=== PATIENT | female | born 1975 | race Hispanic/Latino ===

== ENCOUNTER → 2018-02-04 | Outpatient (CLI) | payer OTHER, MEDICARE ==
[~2018-02-04] MED LIST: FLUT1AER IH; LEVO500T2 PO
== END | disposition home or self-care (01) ==
LOC: SLP 20:41
PROVIDERS: ATTEND Family Medicine
DX: G47.33 Obstructive sleep apnea (adult) (pediatric) (principal); E66.01 Morbid (severe) obesity due to excess calories; J44.9 Chronic obstructive pulmonary disease, unspecified; J96.01 Acute respiratory failure with hypoxia
CPT/HCPCS: 95810

== ENCOUNTER → 2018-02-25 | Outpatient (CLI) | payer OTHER, MEDICARE | END | disposition home or self-care (01) | LOC: SLP 20:25 | PROVIDERS: ATTEND Family Medicine | DX: G47.33 Obstructive sleep apnea (adult) (pediatric) (principal); E66.01 Morbid (severe) obesity due to excess calories; J44.9 Chronic obstructive pulmonary disease, unspecified; J96.10 Chronic respiratory failure, unspecified whether with hypoxia or hypercapnia | CPT/HCPCS: 95811 ==

== ENCOUNTER 2018-06-23 09:07 | Observation (INO) | payer OTHER, MEDICARE ==
[~2018-06-23] VITALS: Ht 157.5 cm; Wt 222.4 kg
[2018-06-23 10:00] LABS: BASOPHILS % (AUTO) 0.9 % (0.0-5.0); EOSINOPHILS % (AUTO) 1.7 % (0.0-8.0); LYMPHOCYTES % (AUTO) 22.4 % (21.0-51.0); MEAN CORPUSCULAR HEMOGLOBIN 26.2 pg (27.0-33.0); MEAN CORPUSCULAR HGB CONC 31.3 g/dL (32.0-36.0); MEAN CORPUSCULAR VOLUME 83.6 fL (79-99); MONOCYTES % (AUTO) 7.4 % (3.0-13.0); NEUTROPHILS % (AUTO) 67.6 % (40.0-77.0); NUCLEATED RED BLOOD CELLS 0.1 % (0.0-0.19); PLATELET COUNT (AUTO) 218 K/uL (130-400); RED CELL DISTRIBUTION WIDTH 15.8 % (11.0-15.5); WHITE BLOOD COUNT (AUTO) 7.8 K/uL (4.8-10.8)
[2018-06-23] MEDS ORDERED: HYDROCODONE/ACETAMINOPHEN 10/325 MG TAB ONE (10:03)
[2018-06-23] MEDS ORDERED: FUROSEMIDE 10 MG/ML 4ML VIAL ONE ×2 (10:03→20:49)
[2018-06-23] MEDS ORDERED: FUROSEMIDE 10 MG/ML 2ML VIAL ONE (10:03)
[2018-06-23 10:16] LABS: CREATININE 1.1 mg/dL (0.5-1.5); POTASSIUM 4.7 mmol/L (3.5-5.1)
[2018-06-23 10:30] LABS: B-TYPE NATRIURETIC PEPTIDE 23 pg/mL (0-100)
[2018-06-23] MEDS ORDERED: POTASSIUM CHLORIDE 10% ELIXIR 20 MEQ/15 ML UDCUP PO PRN (12:45)
[2018-06-23] MEDS ORDERED: GUAIFENESIN SUGAR-FREE 100 MG/5 ML UDCUP PO PRN (12:45)
[2018-06-23] MEDS ORDERED: GUAIFENESIN-DM 200/20 MG 10 ML PO PRN (12:45)
[2018-06-23] MEDS ORDERED: DIPHENHYDRAMINE HCL 25 MG CAPSULE PO PRN (12:45)
[2018-06-23] MEDS ORDERED: GLUCAGON 1MG KIT 1 MG ML IM PRN (12:45)
[2018-06-23] MEDS ORDERED: DiphenhydrAMINE HCL 50 MG/ML VIAL IVP PRN (12:45)
[2018-06-23] MEDS ORDERED: ONDANSETRON HCL 4 MG/2 ML VIAL IVP PRN (12:45)
[2018-06-23] MEDS ORDERED: MAG HYDROX/AL HYDROX/SIMETH ES 30 ML SUSP UDCUP PO PRN (12:45)
[2018-06-23] MEDS ORDERED: LACTULOSE 20 GM/30 ML UDCUP PO PRN (12:45)
[2018-06-23] MEDS ORDERED: DEXTROSE 50%-WATER 50 ML DISP.SYRIN IV PRN (12:45)
[2018-06-23] MEDS ORDERED: ACETAMINOPHEN 325 MG TAB PO PRN ×2 (12:45)
[2018-06-23] MEDS ORDERED: NITROGLYCERIN 0.4 MG SL TAB SL PRN (12:45)
[2018-06-23] MEDS ORDERED: CLONIDINE HCL 0.1 MG TABLET PO PRN (12:45)
[2018-06-23] MEDS ORDERED: ZOLPIDEM TARTRATE 5 MG TAB PO PRN (12:45)
[2018-06-23] MEDS ORDERED: POTASSIUM CHLORIDE 20MEQ/100ML 100 ML IV PRN (12:45)
[2018-06-23] MEDS ORDERED: POTASSIUM CHLORIDE 20 MEQ ERTAB PO PRN (12:45)
[2018-06-23] MEDS ORDERED: SODIUM CHLORIDE 0.9% 10 ML VIAL IVP SCH (12:45)
[2018-06-23] MEDS ORDERED: LIDOCAINE HCL-MPF 1% 2ML VIAL IJ PRN (12:45)
[2018-06-23] MEDS ORDERED: FUROSEMIDE 10 MG/ML 4ML VIAL IVP SCH (13:00)
[2018-06-23] MEDS ORDERED: LOSA100T58 PO (14:55)
[2018-06-23] MEDS ORDERED: FURO40TA5 PO (14:55)
[2018-06-23] MEDS: INSULIN R PO SSI SQ SCH ×2 (16:30→21:00)
[2018-06-23] MEDS ORDERED: ACETAMINOPHEN 325 MG TAB ONE (17:09)
[2018-06-23 21:30] VITALS: BP 140/105
[2018-06-24] VITALS (7 sets, daily range): BP systolic 111–153; BP diastolic 59–95
[2018-06-24] MEDS: INSULIN R PO SSI SQ SCH ×4 (06:54→20:21)
[2018-06-24] MEDS: FLUTICASONE/VILANTEROL 1 EACH AER.POW.BA IH SCH (09:00)
[2018-06-24] MEDS: LOSARTAN 100 MG TABLET PO SCH (09:36)
[2018-06-24] MEDS: FUROSEMIDE 10 MG/ML 4ML VIAL IVP SCH ×2 (09:36→20:16)
--- NOTE | 2018-06-24 18:10 | NUR ---
IA MET W PT FOR IA; PT SEVERELY MORBIDLY OBESE, NEEDS SUGAR TRUCKER W ADLS, LIVE W KIDS, 17, 5, AND 2; STATES HAS ALWAYS BEEN ACTIVE BUT IN THE LAST FEE WEEKS CANNOT WALK, SHORT OT BEATH, LEGS SWOLLEN, SCARED, HAS PORVIDER SERVICES, UNABLE TO LOOK AFTER HER CHILDREN. DOES NOT KNOW WHAT THE FUTURE HOLDS. CM TO FOLLOW Addendum: 06/24/18 at 2043 by IZA MARMOLEJO RN CM Amended: Links added.
[2018-06-24] MEDS ORDERED: ESCI10TA54 PO (19:15)
[2018-06-24] MEDS ORDERED: HYDROCODONE/ACETAMINOPHEN 5/325 MG TAB PO PRN (20:00)
[2018-06-24 20:03] LABS: CREATININE 1.1 mg/dL (0.5-1.5)
[2018-06-25 04:04] VITALS: BP 145/79
[2018-06-25] MEDS: INSULIN R PO SSI SQ SCH ×2 (06:00→11:30)
[2018-06-25 07:30] VITALS: BP 155/91
[2018-06-25] MEDS: FUROSEMIDE 10 MG/ML 4ML VIAL IVP SCH (08:19)
[2018-06-25] MEDS: FLUTICASONE/VILANTEROL 1 EACH AER.POW.BA IH SCH (08:19)
[2018-06-25] MEDS: LOSARTAN 100 MG TABLET PO SCH (08:19)
[2018-06-25] MEDS ORDERED: CITALOPRAM 20 MG TABLET PO SCH (09:00)
[2018-06-25] MEDS ORDERED: NON-FORMULARY MEDICATION 1 EACH (Escitalopram Oxalate 10 MG) PO SCH (09:00)
[2018-06-25 11:00] VITALS: BP 130/67
[2018-06-25 14:27] LABS: CREATININE 1.4 mg/dL (0.5-1.5); POTASSIUM 3.9 mmol/L (3.5-5.1)
[2018-06-25 14:32] LABS: ALBUMIN 2.3 g/dL (3.5-5.0); BILIRUBIN,TOTAL 0.2 mg/dL (0.2-1.0); TOTAL PROTEIN, SERUM 6.6 g/dL (6.0-8.3)
--- NOTE | 2018-06-25 17:37 | NUR ---
Patient discharged in stable condition. patient instructed if SOB returns or gets worse, come back to the ER. New prescription called into [facility] Baclofen 10mg BID PRN. Patient instructed how to take medication and to report any allergic reaction right away. Patient pending to citrus picker her oxygen tank. Patient verbalized teaching to all discharge instruction. No other questions or concerns voiced.
== END 2018-06-25 19:15 | disposition home or self-care (01) ==
LOC: EDH 09:07 → OBSVTOIN 12:20 → EDHIP 12:20 → INTOOBSV 12:20 → 4BH 21:30
PROVIDERS: ADMIT Family Medicine; ATTEND Family Medicine
DX: R06.03 Acute respiratory distress (principal); E66.01 Morbid (severe) obesity due to excess calories; E78.5 Hyperlipidemia, unspecified; G47.33 Obstructive sleep apnea (adult) (pediatric); I10 Essential (primary) hypertension; R29.6 Repeated falls
CPT/HCPCS: 36415 ×3; 71046; 73560; 80048 ×2; 80053; 82948 ×6; 83880; 84484; 85025; 93005; 94660 ×2; 96374; 96376 ×2; 99284; G0378 ×55; J1940 ×6

== ENCOUNTER 2020-01-12 09:11 | Inpatient (IN) | payer OTHER, MEDICARE ==
[~2020-01-12] VITALS: Ht 157.5 cm; Wt 196.0 kg
[~2020-01-12 09:11] MED LIST changes: +ESCI10TA54 PO; +FURO40TA5 PO; -LEVO500T2 PO; +LOSA100T58 PO
[2020-01-12 09:49] LABS: CREATININE 1.7 mg/dL (0.5-1.5); POTASSIUM 4.8 mmol/L (3.5-5.1)
[2020-01-12 09:57] LABS: INR 1.03 (0.85-1.15); PARTIAL THROMBOPLASTIN TIME 24.7 SEC (26.3-35.5); PROTHROMBIN TIME 11.1 SEC (9.6-11.6)
[2020-01-12 09:59] LABS: ALBUMIN 2.5 g/dL (3.5-5.0); BILIRUBIN,TOTAL 0.3 mg/dL (0.2-1.0); TOTAL PROTEIN, SERUM 7.1 g/dL (6.0-8.3)
[2020-01-12 10:13] LABS: APPEARANCE,URINE CLOUDY (CLEAR); BILIRUBIN,URINE SMALL (NEGATIVE); COLOR,URINE YELLOW (YELLOW); GLUCOSE, URINE (UA) NEGATIVE (NEGATIVE); KETONES,URINE NEGATIVE (NEGATIVE); LEUKOCYTE ESTERASE ,URINE NEGATIVE (NEGATIVE); NITRATE,URINE NEGATIVE (NEGATIVE); OCCULT BLOOD,URINE SMALL (NEGATIVE); PH,URINE 5.5 (5.0-8.0); PROTEIN,URINE >=300 mg/dL (NEGATIVE)
[2020-01-12 10:24] LABS: AMORPHOUS SEDIMENT,UR Moderate /LPF (None Seen); BACTERIA,URINE Few /HPF (None Seen); RBC,URINE 0-1 /HPF (0-1); SQUAMOUS EPITHELIAL CELL,UR Few /HPF (0-2)
[2020-01-12 10:26] LABS: ABG BASE EXCESS 6.7 mmol/L (-2.0-3.0); ABG OXYGEN SATURATION 93.1 % (95.0-99.0); ABG PCO2 90 mmHg (32-45)
[2020-01-12 10:40] LABS: BASOPHILS % (AUTO) 0.5 % (0.0-5.0); EOSINOPHILS % (AUTO) 1.2 % (0.0-8.0); HEMATOCRIT 42.7 % (36-48); LYMPHOCYTES % (AUTO) 18.6 % (21.0-51.0); MEAN CORPUSCULAR HEMOGLOBIN 22.9 pg (27.0-33.0); MEAN CORPUSCULAR HGB CONC 26.9 g/dL (32.0-36.0); MEAN CORPUSCULAR VOLUME 85.1 fL (79-99); MONOCYTES % (AUTO) 6.9 % (3.0-13.0); NEUTROPHILS % (AUTO) 72.3 % (40.0-77.0); PLATELET COUNT (AUTO) 202 K/uL (130-400); RED BLOOD CELL COUNT(AUTO) 5.02 MIL/uL (4.00-5.50); RED CELL DISTRIBUTION WIDTH 19.7 % (11.0-15.5); WHITE BLOOD COUNT (AUTO) 8.5 K/uL (4.8-10.8)
[2020-01-12] MEDS ORDERED: PANTOPRAZOLE 40 MG/VIAL ONE (11:57)
[2020-01-12] MEDS ORDERED: CEFTRIAXONE SODIUM 1 GM ONE (11:58)
[2020-01-12] MEDS ORDERED: SODIUM CHLORIDE 0.9% 50 ML IV ONE (11:58)
[2020-01-12 18:48] VITALS: BP 156/73
[2020-01-12] MEDS ORDERED: QUET50TA55 PO (19:42)
[2020-01-12] MEDS ORDERED: METF-444 PO (19:42)
[2020-01-12] MEDS ORDERED: HYDR25TA PO (19:42)
[2020-01-12] MEDS ORDERED: BACL10TA PO (19:42)
[2020-01-12] MEDS ORDERED: DULO60CA64 PO (19:42)
[2020-01-12 20:00] VITALS: BP 159/76
[2020-01-12] MEDS ORDERED: DEXTROSE 50%-WATER 50 ML DISP.SYRIN IV PRN (20:15)
[2020-01-12] MEDS ORDERED: GLUCAGON 1MG KIT 1 MG ML IM PRN (20:15)
[2020-01-12] MEDS: ENOXAPARIN SODIUM 120 MG/0.8ML SQ SCH (21:00)
[2020-01-12] MEDS: INSULIN HUMULIN R 100 UNIT/ML 3ML SQ SCH (21:00)
[2020-01-13 00:27] VITALS: BP 132/91
[2020-01-13 04:32] VITALS: BP 155/91
[2020-01-13] MEDS ORDERED: ACETAMINOPHEN 325 MG TAB PO PRN (05:00)
[2020-01-13] MEDS: INSULIN HUMULIN R 100 UNIT/ML 3ML SQ SCH ×4 (06:02→21:00)
[2020-01-13 07:21] LABS: ALBUMIN 2.4 g/dL (3.5-5.0); BILIRUBIN,TOTAL 0.4 mg/dL (0.2-1.0); CREATININE 1.7 mg/dL (0.5-1.5); MAGNESIUM 1.7 mg/dL (1.80-2.40); PHOSPHORUS 3.4 mg/dL (2.5-4.9); POTASSIUM 4.4 mmol/L (3.5-5.1); TOTAL PROTEIN, SERUM 6.7 g/dL (6.0-8.3)
[2020-01-13 08:25] LABS: ABG HCO3 34.7 mmol/L (21.0-28.0); ABG OXYGEN SATURATION 94.1 % (95.0-99.0); ABG PCO2 76 mmHg (32-45)
[2020-01-13 08:33] VITALS: BP 154/90
[2020-01-13] MEDS: BACLOFEN 10 MG TABLET PO SCH ×3 (10:14→22:13)
[2020-01-13] MEDS: CEFTRIAXONE SODIUM 1 GM IVP SCH (10:14)
[2020-01-13] MEDS: ENOXAPARIN SODIUM 120 MG/0.8ML SQ SCH ×2 (10:15→22:14)
[2020-01-13 11:23] VITALS: BP 144/90
--- NOTE | 2020-01-13 16:00 | NUR ---
NUTRITION DIGITAL MARKETING MANAGER-Assisted Diabetes Nutrition Education. BROOKS faxed nutrition education 3A, RN notified. BROOKS to follow up. Addendum: 01/13/20 at [address] Amended: Links added.
--- NOTE | 2020-01-13 16:07 | NUR ---
RD NOTIFICATION Pt admitted with ARF, s/p Fall. BiPAP. Obesity Class III (BMI 99.9). Heart Healthy,75gm CC diet order in place. LBM 01/11/20. Monitored labs: BUN 24, Cr 1.7, GFR 35, BG 117, Alb 2.4. Recommend continue Heart Healthy, 75gm CCD Recommend Glucerna TID Nutrition Education faxed to 3A [phone]), RN notified RD to continue to monitor. Please notify as additional nutrition concerns arise. Thank you. Addendum: 01/13/20 at [address] Amended: Links added.
[2020-01-13 16:58] VITALS: BP 140/77
--- NOTE | 2020-01-13 19:51 | NUR ---
MET WITH PATIENT FOR DC PLANNING PATIENT LIVES WITH HER TWO YOUNG CHILDREN AND HER ADULT SUNIL. SHE HAS A PROVIDER 47 HRS A WEEK AND HER SISTER COMES IN TO LOOK AFTER HER CHILDREN WHEN THE PROVIDER LEAVES FOR THE EVENING. SHE HAS OXYGEN, CPAP MACHINE AND A WHEELCHAIR; SHE DOES NOT HAVE A HOSPITAL BED. HER MOBILITY IS SEVERELY RESTRICTED. BMI IS 99 WE WILL EXPECT EMP TRANSPORT HOME. POSSIBLE NEED FOR HOSPITAL BED. CM TO FOLLOW Addendum: 01/13/20 at 1954 by IZA MARMOLEJO RN CM Amended: Links added.
[2020-01-13 20:00] VITALS: BP 162/90
[2020-01-14] VITALS: BP 102/56
[2020-01-14 04:00] VITALS: BP 148/84
[2020-01-14] MEDS: INSULIN HUMULIN R 100 UNIT/ML 3ML SQ SCH ×4 (06:09→21:00)
[2020-01-14 08:24] VITALS: BP 130/81
[2020-01-14] MEDS: BACLOFEN 10 MG TABLET PO SCH ×3 (09:30→20:58)
[2020-01-14] MEDS: FUROSEMIDE 10 MG/ML 4ML VIAL IV SCH (09:30)
[2020-01-14] MEDS: ENOXAPARIN SODIUM 120 MG/0.8ML SQ SCH ×2 (09:31→20:57)
[2020-01-14] MEDS: CEFTRIAXONE SODIUM 1 GM IVP SCH (09:31)
[2020-01-14 11:34] VITALS: BP 129/74
[2020-01-14 16:18] VITALS: BP 136/80
[2020-01-14 16:56] LABS: ABG BASE EXCESS 7.5 mmol/L (-2.0-3.0); ABG HCO3 38.7 mmol/L (21.0-28.0); ABG OXYGEN SATURATION 86.4 % (95.0-99.0); ABG PCO2 91 mmHg (32-45)
--- NOTE | 2020-01-14 17:06 | NUR ---
i spoke to milana harper and informed her of current pco2 level of 90, and that respiratory is going to go up to 50% on FIO2; she stated ok she would look at results.
--- NOTE | 2020-01-14 18:55 | NUR ---
CT DEPARTMENT CALLED IN REGARDS TO ORDER FOR CT ANGIO CHEST THAT PT'S CREATINE IS 1.7 WHICH IS ABOVE THERE NORMAL RANGE, I ASKED ABOUT PT'S WEIGHT OF 550 LBS AND SHE STATED THAT SHE IS ALSO THEN TO HEAVY FOR THE MACHINE; I HAVE PAGED CORRUGATOR OPERATOR DEISY JACOBSNO VIA ANSWERING SERVICE AND PENDING CALL BACK
[2020-01-14 20:00] VITALS: BP 143/88
[2020-01-15] VITALS: BP 137/77
[2020-01-15 04:00] VITALS: BP 127/76
[2020-01-15 04:17] LABS: BASOPHILS % (AUTO) 0.4 % (0.0-5.0); EOSINOPHILS % (AUTO) 2.2 % (0.0-8.0); HEMATOCRIT 37.9 % (36-48); LYMPHOCYTES % (AUTO) 14.3 % (21.0-51.0); MEAN CORPUSCULAR HEMOGLOBIN 22.8 pg (27.0-33.0); MEAN CORPUSCULAR HGB CONC 26.6 g/dL (32.0-36.0); MEAN CORPUSCULAR VOLUME 85.6 fL (79-99); MONOCYTES % (AUTO) 7.6 % (3.0-13.0); NEUTROPHILS % (AUTO) 75.2 % (40.0-77.0); PLATELET COUNT (AUTO) 190 K/uL (130-400); RED BLOOD CELL COUNT(AUTO) 4.43 MIL/uL (4.00-5.50); WHITE BLOOD COUNT (AUTO) 7.3 K/uL (4.8-10.8)
[2020-01-15 04:24] LABS: ALBUMIN 2.4 g/dL (3.5-5.0); BILIRUBIN,TOTAL 0.4 mg/dL (0.2-1.0); CREATININE 1.7 mg/dL (0.5-1.5); MAGNESIUM 1.7 mg/dL (1.80-2.40); PHOSPHORUS 3.4 mg/dL (2.5-4.9); POTASSIUM 4.2 mmol/L (3.5-5.1); TOTAL PROTEIN, SERUM 6.5 g/dL (6.0-8.3)
[2020-01-15 04:43] LABS: B-TYPE NATRIURETIC PEPTIDE 392 pg/mL (0-100)
[2020-01-15] MEDS: INSULIN HUMULIN R 100 UNIT/ML 3ML SQ SCH ×4 (06:33→21:00)
[2020-01-15 08:04] LABS: ABG BASE EXCESS 7.3 mmol/L (-2.0-3.0); ABG HCO3 38.5 mmol/L (21.0-28.0); ABG OXYGEN SATURATION 96.6 % (95.0-99.0); ABG PCO2 90 mmHg (32-45)
[2020-01-15 08:11] VITALS: BP 140/82
[2020-01-15] MEDS: HYDROCHLOROTHIAZIDE 25 MG TABLET PO SCH (08:33)
[2020-01-15] MEDS: FLUTICASONE/VILANTEROL 1 EACH AER.POW.BA IH SCH (08:33)
[2020-01-15] MEDS: DULOXETINE HCL 30 MG CAP PO SCH (08:33)
[2020-01-15] MEDS: BACLOFEN 10 MG TABLET PO SCH ×3 (08:33→21:00)
[2020-01-15] MEDS: FUROSEMIDE 10 MG/ML 4ML VIAL IV SCH (08:34)
[2020-01-15] MEDS: CEFTRIAXONE SODIUM 1 GM IVP SCH (08:34)
--- NOTE | 2020-01-15 09:39 | NUR ---
I SPOKE TO DE FELICIANO AND INFORMED HER PT EXCEDES WEIGHT CAPACITY FOR VQ SCAN; SHE STATED TO CANCEL THE TEST THEN. WEIGHT CAPACITY IS 450 LBS AND PT WEIGHS 530 LBS
[2020-01-15] MEDS: ENOXAPARIN SODIUM 120 MG/0.8ML SQ SCH ×2 (10:10→21:02)
[2020-01-15 11:31] VITALS: BP 128/76
--- NOTE | 2020-01-15 12:51 | NUR ---
COVID RAPID AND PCR COLLECTED AND SENT TO LAB
[2020-01-15 15:58] VITALS: BP 166/82
[2020-01-15] MEDS: MAGNESIUM 2GM PREMIX 50ML 50 ML IV PRN (16:36)
[2020-01-15 20:00] VITALS: BP 115/70
[2020-01-16] VITALS (7 sets, daily range): BP systolic 124–146; BP diastolic 64–94
[2020-01-16 04:07] LABS: BASOPHILS % (AUTO) 0.5 % (0.0-5.0); EOSINOPHILS % (AUTO) 3.3 % (0.0-8.0); HEMATOCRIT 35.8 % (36-48); LYMPHOCYTES % (AUTO) 15.8 % (21.0-51.0); MEAN CORPUSCULAR HEMOGLOBIN 23.1 pg (27.0-33.0); MEAN CORPUSCULAR HGB CONC 27.7 g/dL (32.0-36.0); MEAN CORPUSCULAR VOLUME 83.4 fL (79-99); MONOCYTES % (AUTO) 8.4 % (3.0-13.0); NEUTROPHILS % (AUTO) 71.7 % (40.0-77.0); PLATELET COUNT (AUTO) 143 K/uL (130-400); RED BLOOD CELL COUNT(AUTO) 4.29 MIL/uL (4.00-5.50); WHITE BLOOD COUNT (AUTO) 6.4 K/uL (4.8-10.8)
[2020-01-16 04:28] LABS: ALBUMIN 2.4 g/dL (3.5-5.0); BILIRUBIN,TOTAL 0.4 mg/dL (0.2-1.0); CREATININE 1.6 mg/dL (0.5-1.5); MAGNESIUM 1.7 mg/dL (1.80-2.40); TOTAL PROTEIN, SERUM 6.8 g/dL (6.0-8.3)
[2020-01-16 05:03] LABS: B-TYPE NATRIURETIC PEPTIDE 343 pg/mL (0-100)
[2020-01-16] MEDS: INSULIN HUMULIN R 100 UNIT/ML 3ML SQ SCH ×4 (06:23→21:00)
[2020-01-16] MEDS: HYDROCHLOROTHIAZIDE 25 MG TABLET PO SCH (09:02)
[2020-01-16] MEDS: DULOXETINE HCL 30 MG CAP PO SCH (09:02)
[2020-01-16] MEDS: CEFTRIAXONE SODIUM 1 GM IVP SCH (09:02)
[2020-01-16] MEDS: ENOXAPARIN SODIUM 120 MG/0.8ML SQ SCH ×2 (09:02→20:02)
[2020-01-16] MEDS: BACLOFEN 10 MG TABLET PO SCH ×3 (09:02→20:02)
[2020-01-16] MEDS: FUROSEMIDE 10 MG/ML 4ML VIAL IV SCH (09:02)
[2020-01-16] MEDS: FLUTICASONE/VILANTEROL 1 EACH AER.POW.BA IH SCH (09:04)
--- NOTE | 2020-01-16 17:17 | NUR ---
CM Note: HCD pending to replace BIpap CM spoke to pt, verbalized her bipap is broken and will need to be replaced. Telephone consent obtained MONY for [facility]. Faxed order and clinicals, confirmation received. Pt pending approval for replacement of broken bipap. Primary nurse aware. CM to cont to follow up.
[2020-01-17 03:50] LABS: CARBON DIOXIDE 40 mmol/L (21-32); CHLORIDE 102 mmol/L (101-111); CREATININE 1.5 mg/dL (0.5-1.5); GLOMERULAR FILTR. RATE CALC 40 mL/min (>60); GLUCOSE,RANDOM 88 mg/dL (70-105); POTASSIUM 4.1 mmol/L (3.5-5.1); SODIUM SERUM 145 mmol/L (136-145); UREA NITROGEN, BLOOD 17 mg/dL (7-18)
[2020-01-17 04:00] VITALS: BP 148/88
[2020-01-17] MEDS: INSULIN HUMULIN R 100 UNIT/ML 3ML SQ SCH ×4 (06:50→20:33)
[2020-01-17 07:48] LABS: ABG BASE EXCESS 9.4 mmol/L (-2.0-3.0); ABG HCO3 40.6 mmol/L (21.0-28.0); ABG OXYGEN SATURATION 86.5 % (95.0-99.0); ABG PCO2 92 mmHg (32-45)
[2020-01-17 08:05] VITALS: BP 156/93
[2020-01-17] MEDS: CEFTRIAXONE SODIUM 1 GM IVP SCH (08:25)
[2020-01-17] MEDS: FUROSEMIDE 10 MG/ML 4ML VIAL IV SCH (08:28)
[2020-01-17] MEDS: BACLOFEN 10 MG TABLET PO SCH ×3 (08:51→20:31)
[2020-01-17] MEDS: HYDROCHLOROTHIAZIDE 25 MG TABLET PO SCH (08:51)
[2020-01-17] MEDS: DULOXETINE HCL 30 MG CAP PO SCH (08:51)
[2020-01-17] MEDS: ENOXAPARIN SODIUM 120 MG/0.8ML SQ SCH ×2 (08:53→20:32)
[2020-01-17] MEDS: FLUTICASONE/VILANTEROL 1 EACH AER.POW.BA IH SCH (08:59)
[2020-01-17 11:25] VITALS: BP_SYST 115; BP_SYST 175; BP_DIAS 63; BP_DIAS 94
[2020-01-17] MEDS: MAGNESIUM 2GM PREMIX 50ML 50 ML IV PRN (12:03)
--- NOTE | 2020-01-17 15:46 | NUR ---
CM Note: HCD will fix pt bipap CM spoke to Elke w/[facility], verbalized DME will coordinate w/pt and family so that bipap can be fixed prior to pt discharging. If unable to fix, DME will replace bipap. Aware dcp possibly 24-48hrs. Primary nurse aware. CM to cont to follow up
[2020-01-17 16:21] VITALS: BP 156/96
--- NOTE | 2020-01-17 17:45 | NUR ---
PATIENT COMPLAINT PATIENT REPORTED HAVING ISSUES SWALLOWING WHILE EATING BREADED MEAT AT DINNER. I ASKED PATIENT WHEN IT STARTED AND SHE SAID SHE FIRST NOTICED ISSUES SWALLOWING AT THIS TIME WHILE EATING DINNER. PATIENT THEN STATES "BUT I ATE A COOKIE WITH NO PROBLEMS." I TOLD PATIENT THAT IF SHE WAS ABLE TO EAT A COOKIE WITH NO SWALLOWING ISSUES THEN POSSIBLY THE SWALLOWING ISSUE HAD TO DO WITH CONSISTENCY OF BREADED CHICKEN AND NOT THE ABILITY TO SWALLOW. PATIENT ALSO REPORTS EATING JELLO AND DRINKING GLUCERNA WITH NO ISSUES. I ALSO ASSESSED PATIENT DRINKING WATER AND TAKE WHOLE PILLS WITH NO SIGNS OF PROBLEMS SWALLOWING. WILL CONTINUE TO MONITOR.
[2020-01-17 20:00] VITALS: BP 133/88
[2020-01-17 23:49] VITALS: BP 133/84
[2020-01-18 03:25] LABS: ABG BASE EXCESS 14.1 mmol/L (-2.0-3.0); ABG HCO3 43.8 mmol/L (21.0-28.0); ABG OXYGEN SATURATION 92.9 % (95.0-99.0); ABG PCO2 79 mmHg (32-45)
[2020-01-18 04:00] VITALS: BP 136/84
[2020-01-18] MEDS: INSULIN HUMULIN R 100 UNIT/ML 3ML SQ SCH ×4 (05:58→21:00)
[2020-01-18 06:27] LABS: BASOPHILS % (AUTO) 0.5 % (0.0-5.0); EOSINOPHILS % (AUTO) 3.6 % (0.0-8.0); HEMATOCRIT 35.6 % (36-48); LYMPHOCYTES % (AUTO) 19.2 % (21.0-51.0); MEAN CORPUSCULAR HEMOGLOBIN 22.6 pg (27.0-33.0); MEAN CORPUSCULAR HGB CONC 27.2 g/dL (32.0-36.0); MONOCYTES % (AUTO) 9.9 % (3.0-13.0); NEUTROPHILS % (AUTO) 66.4 % (40.0-77.0); PLATELET COUNT (AUTO) 155 K/uL (130-400); RED BLOOD CELL COUNT(AUTO) 4.29 MIL/uL (4.00-5.50); RED CELL DISTRIBUTION WIDTH 19.2 % (11.0-15.5); WHITE BLOOD COUNT (AUTO) 5.6 K/uL (4.8-10.8)
[2020-01-18 06:43] LABS: ALBUMIN 2.3 g/dL (3.5-5.0); BILIRUBIN,TOTAL 0.5 mg/dL (0.2-1.0); CREATININE 1.5 mg/dL (0.5-1.5); MAGNESIUM 1.4 mg/dL (1.80-2.40); PHOSPHORUS 3.2 mg/dL (2.5-4.9); POTASSIUM 3.8 mmol/L (3.5-5.1); TOTAL PROTEIN, SERUM 6.4 g/dL (6.0-8.3)
[2020-01-18 08:11] VITALS: BP 118/51
[2020-01-18] MEDS: DULOXETINE HCL 30 MG CAP PO SCH (08:36)
[2020-01-18] MEDS: BACLOFEN 10 MG TABLET PO SCH ×3 (08:36→19:29)
[2020-01-18] MEDS: HYDROCHLOROTHIAZIDE 25 MG TABLET PO SCH (08:36)
[2020-01-18] MEDS: FUROSEMIDE 10 MG/ML 4ML VIAL IV SCH (08:36)
[2020-01-18] MEDS: FLUTICASONE/VILANTEROL 1 EACH AER.POW.BA IH SCH (08:36)
[2020-01-18] MEDS: CEFTRIAXONE SODIUM 1 GM IVP SCH (08:36)
[2020-01-18 11:16] VITALS: BP 117/70
[2020-01-18] MEDS: ENOXAPARIN SODIUM 120 MG/0.8ML SQ SCH ×2 (12:14→19:30)
[2020-01-18 15:41] VITALS: BP 130/93
[2020-01-18 20:00] VITALS: BP 128/78
[2020-01-18 23:49] VITALS: BP 132/82
[2020-01-19 03:59] VITALS: BP 138/84
[2020-01-19] MEDS: INSULIN HUMULIN R 100 UNIT/ML 3ML SQ SCH ×4 (05:46→21:00)
[2020-01-19 08:18] VITALS: BP 152/91
[2020-01-19] MEDS: FLUTICASONE/VILANTEROL 1 EACH AER.POW.BA IH SCH (10:22)
[2020-01-19] MEDS: ENOXAPARIN SODIUM 120 MG/0.8ML SQ SCH ×2 (10:24→21:39)
[2020-01-19] MEDS: FUROSEMIDE 10 MG/ML 4ML VIAL IV SCH (10:25)
[2020-01-19] MEDS: CEFTRIAXONE SODIUM 1 GM IVP SCH (10:25)
[2020-01-19] MEDS ORDERED: ONDANSETRON HCL 4 MG/2 ML VIAL ONE (10:29)
[2020-01-19] MEDS: DULOXETINE HCL 30 MG CAP PO SCH (10:32)
[2020-01-19] MEDS: BACLOFEN 10 MG TABLET PO SCH ×3 (10:32→21:38)
[2020-01-19] MEDS: HYDROCHLOROTHIAZIDE 25 MG TABLET PO SCH (10:32)
[2020-01-19] MEDS ORDERED: ONDANSETRON HCL 4 MG/2 ML VIAL IVP PRN (10:45)
[2020-01-19] MEDS: MAGNESIUM 2GM PREMIX 50ML 50 ML IV PRN (11:13)
[2020-01-19 11:35] VITALS: BP 124/66
--- NOTE | 2020-01-19 13:00 | NUR ---
pt c/o not feeling good; she states she has mild chest pain to mid chest not radiating anywhere; pt has just completed receiving 2mg of magnesium per protocol, her bp is 119/65, hr108, and o2 sat was initially in the upper 70's low 80's till i adjusted her bipap mask and then it went into the upper 80's to low 90's; i have called melinda rebolledo for [facility] and informed her of pt's c/o chest pain and received orders to do a 12 lead ekg and cardiac enzymes Q6hr's x3; ekg read sinus taccycardia, pending results of cardiac enzymes; after 5 minutes pt stated her pain was decreasing; will cont to monitor including frequent vs.
[2020-01-19 13:45] LABS: CREATINE KINASE, TOTAL 31 U/L (21-232); MYOGLOBIN 51 ng/mL (10-92); TROPONIN I < 0.04 ng/mL (0.00-0.06)
[2020-01-19 16:38] VITALS: BP 99/56
[2020-01-19 20:00] VITALS: BP 116/65
[2020-01-20] VITALS: BP 139/78
[2020-01-20 04:00] VITALS: BP 135/70
[2020-01-20 04:08] LABS: ABG BASE EXCESS 10.6 mmol/L (-2.0-3.0); ABG HCO3 42.3 mmol/L (21.0-28.0); ABG OXYGEN SATURATION 89.5 % (95.0-99.0); ABG PCO2 97 mmHg (32-45)
[2020-01-20 04:11] LABS: BASOPHILS % (AUTO) 0.6 % (0.0-5.0); EOSINOPHILS % (AUTO) 3.7 % (0.0-8.0); HEMATOCRIT 39.9 % (36-48); LYMPHOCYTES % (AUTO) 28.2 % (21.0-51.0); MEAN CORPUSCULAR HEMOGLOBIN 22.6 pg (27.0-33.0); MEAN CORPUSCULAR HGB CONC 26.6 g/dL (32.0-36.0); MEAN CORPUSCULAR VOLUME 85.3 fL (79-99); NEUTROPHILS % (AUTO) 55.1 % (40.0-77.0); PLATELET COUNT (AUTO) 154 K/uL (130-400); RED BLOOD CELL COUNT(AUTO) 4.68 MIL/uL (4.00-5.50); RED CELL DISTRIBUTION WIDTH 19.7 % (11.0-15.5); WHITE BLOOD COUNT (AUTO) 5.4 K/uL (4.8-10.8)
--- NOTE | 2020-01-20 04:21 | NUR ---
CUSTOMER SUPPORT CONSULTANT FOR [facility] PAGED FOR ABG RESULTS
--- NOTE | 2020-01-20 04:35 | NUR ---
CITLALY STRONG STATED NO NEW ORDERS THAT PATIENT HAS A CHRONIC ISSUE AND WILL RELAY MESSAGE WITH MD IN AM RT AWARE
[2020-01-20 04:42] LABS: CREATININE 1.6 mg/dL (0.5-1.5); POTASSIUM 3.8 mmol/L (3.5-5.1)
[2020-01-20 04:49] LABS: ALBUMIN 2.5 g/dL (3.5-5.0); BILIRUBIN,TOTAL 0.3 mg/dL (0.2-1.0); MAGNESIUM 1.8 mg/dL (1.80-2.40); PHOSPHORUS 4.4 mg/dL (2.5-4.9); TOTAL PROTEIN, SERUM 7.2 g/dL (6.0-8.3); TROPONIN I 0.07 ng/mL (0.00-0.06)
[2020-01-20] MEDS: INSULIN HUMULIN R 100 UNIT/ML 3ML SQ SCH ×4 (07:05→21:00)
[2020-01-20 08:19] VITALS: BP 131/82
[2020-01-20] MEDS: FUROSEMIDE 10 MG/ML 4ML VIAL IV SCH (08:39)
[2020-01-20] MEDS: BACLOFEN 10 MG TABLET PO SCH ×3 (08:39→19:40)
[2020-01-20] MEDS: CEFTRIAXONE SODIUM 1 GM IVP SCH (08:40)
[2020-01-20] MEDS: HYDROCHLOROTHIAZIDE 25 MG TABLET PO SCH (08:40)
[2020-01-20] MEDS: FLUTICASONE/VILANTEROL 1 EACH AER.POW.BA IH SCH (08:40)
[2020-01-20] MEDS: DULOXETINE HCL 30 MG CAP PO SCH (08:40)
[2020-01-20] MEDS: ENOXAPARIN SODIUM 120 MG/0.8ML SQ SCH ×2 (08:44→19:40)
[2020-01-20 11:06] VITALS: BP 120/77
--- NOTE | 2020-01-20 12:08 | NUR ---
DC PLAN GOT ORDER FOR HOSPITAL BED LET NURSE KNOW NEED SCRIPT. PER NURSE SAID PULMONOLOGY DOES NOT THINK THAT PATIENT CAN GO HOME WITH OUT BIPAP. BIPAP BROKEN [facility] AWARE. SAID THEY WERE GETTING WITH FAMILY TO SEE ABOUT FIXING IT OR REPLACING IT. Addendum: 01/20/20 at 1210 by SHELLY ESCOBAR RN CM Amended: Links added.
[2020-01-20 13:31] LABS: CREATINE KINASE, TOTAL 20 U/L (21-232); MYOGLOBIN 44 ng/mL (10-92); TROPONIN I < 0.04 ng/mL (0.00-0.06)
[2020-01-20 16:40] VITALS: BP 123/67
[2020-01-20 20:00] VITALS: BP 124/95
[2020-01-21] VITALS (7 sets, daily range): BP systolic 122–137; BP diastolic 67–94
[2020-01-21 05:37] LABS: HEMATOCRIT 36.3 % (36-48); MEAN CORPUSCULAR HEMOGLOBIN 23.1 pg (27.0-33.0); MEAN CORPUSCULAR VOLUME 85.4 fL (79-99); PLATELET COUNT (AUTO) 138 K/uL (130-400); RED BLOOD CELL COUNT(AUTO) 4.25 MIL/uL (4.00-5.50); RED CELL DISTRIBUTION WIDTH 19.3 % (11.0-15.5); WHITE BLOOD COUNT (AUTO) 4.6 K/uL (4.8-10.8)
[2020-01-21] MEDS: INSULIN HUMULIN R 100 UNIT/ML 3ML SQ SCH ×4 (06:02→21:00)
[2020-01-21 06:07] LABS: ALBUMIN 2.2 g/dL (3.5-5.0); BILIRUBIN,TOTAL 0.3 mg/dL (0.2-1.0); CREATININE 1.7 mg/dL (0.5-1.5); PHOSPHORUS 3.7 mg/dL (2.5-4.9); POTASSIUM 3.7 mmol/L (3.5-5.1); TOTAL PROTEIN, SERUM 6.4 g/dL (6.0-8.3)
[2020-01-21] MEDS: HYDROCHLOROTHIAZIDE 25 MG TABLET PO SCH (09:08)
[2020-01-21] MEDS: ENOXAPARIN SODIUM 120 MG/0.8ML SQ SCH ×2 (09:08→20:51)
[2020-01-21] MEDS: FUROSEMIDE 10 MG/ML 4ML VIAL IV SCH (09:08)
[2020-01-21] MEDS: FLUTICASONE/VILANTEROL 1 EACH AER.POW.BA IH SCH (09:09)
[2020-01-21] MEDS: BACLOFEN 10 MG TABLET PO SCH ×3 (09:09→20:49)
[2020-01-21] MEDS: CEFTRIAXONE SODIUM 1 GM IVP SCH (09:09)
[2020-01-21] MEDS: DULOXETINE HCL 30 MG CAP PO SCH (09:09)
[2020-01-21 13:56] LABS: CREATINE KINASE, TOTAL 21 U/L (21-232); MYOGLOBIN 38 ng/mL (10-92); TROPONIN I < 0.04 ng/mL (0.00-0.06)
--- NOTE | 2020-01-21 20:05 | NUR ---
ASSESSMENT NOTE PATIENT AWAKE, ALERT, OX3, CONTINUE ON BIPAP WITH SAME SETTINGS, NO RESPIRATORY DISTRESS, TEACH PATIENT PLAN OF CARE AND EXPECTED OUTCOME, PATIENT VERBALIZES UNDERSTANDING VIA TEACH BACK
[2020-01-21] MEDS: ACETAZOLAMIDE SODIUM 500 MG VIAL IV SCH (21:52)
[2020-01-22 03:43] LABS: ABG BASE EXCESS 15.9 mmol/L (-2.0-3.0); ABG HCO3 45.5 mmol/L (21.0-28.0); ABG OXYGEN SATURATION 93.5 % (95.0-99.0); ABG PCO2 79 mmHg (32-45)
[2020-01-22 03:53] VITALS: BP 119/70
[2020-01-22] MEDS: INSULIN HUMULIN R 100 UNIT/ML 3ML SQ SCH ×4 (05:50→20:55)
[2020-01-22 06:09] LABS: BASOPHILS % (AUTO) 0.5 % (0.0-5.0); EOSINOPHILS % (AUTO) 4.2 % (0.0-8.0); HEMATOCRIT 35.9 % (36-48); LYMPHOCYTES % (AUTO) 26.3 % (21.0-51.0); MEAN CORPUSCULAR HEMOGLOBIN 23.2 pg (27.0-33.0); MEAN CORPUSCULAR HGB CONC 27.3 g/dL (32.0-36.0); MEAN CORPUSCULAR VOLUME 84.9 fL (79-99); MONOCYTES % (AUTO) 10.6 % (3.0-13.0); NEUTROPHILS % (AUTO) 58.2 % (40.0-77.0); PLATELET COUNT (AUTO) 153 K/uL (130-400); RED BLOOD CELL COUNT(AUTO) 4.23 MIL/uL (4.00-5.50); RED CELL DISTRIBUTION WIDTH 19.6 % (11.0-15.5); WHITE BLOOD COUNT (AUTO) 5.5 K/uL (4.8-10.8)
[2020-01-22 06:26] LABS: ALBUMIN 2.3 g/dL (3.5-5.0); BILIRUBIN,TOTAL 0.4 mg/dL (0.2-1.0); CREATININE 1.6 mg/dL (0.5-1.5); POTASSIUM 3.6 mmol/L (3.5-5.1); TOTAL PROTEIN, SERUM 6.4 g/dL (6.0-8.3)
[2020-01-22 08:24] VITALS: BP 137/83
[2020-01-22] MEDS: CEFTRIAXONE SODIUM 1 GM IVP SCH (09:54)
[2020-01-22] MEDS: FUROSEMIDE 10 MG/ML 4ML VIAL IV SCH (09:55)
[2020-01-22] MEDS: ACETAZOLAMIDE SODIUM 500 MG VIAL IV SCH ×2 (09:55→21:05)
[2020-01-22] MEDS: DULOXETINE HCL 30 MG CAP PO SCH (09:57)
[2020-01-22] MEDS: FLUTICASONE/VILANTEROL 1 EACH AER.POW.BA IH SCH (09:57)
[2020-01-22] MEDS: BACLOFEN 10 MG TABLET PO SCH ×3 (09:57→20:58)
[2020-01-22] MEDS: HYDROCHLOROTHIAZIDE 25 MG TABLET PO SCH (09:57)
[2020-01-22] MEDS: ENOXAPARIN SODIUM 120 MG/0.8ML SQ SCH ×2 (09:58→20:59)
--- NOTE | 2020-01-22 10:30 | NUR ---
LTAC: Discussed dcp w CLYDE Young. States plan is for LTAC for bipap weaning. Spoke w pt regarding Md recommendation. In agreement w LTAC referral. MONY/PC consent obtained for [facility]. Clinical faxed to [facility]. Spoke w Flower to inform her of new referral. [facility] will review and submit to insurance for auth. CM to continue to follow.
--- NOTE | 2020-01-22 10:57 | NUR ---
DR KENNY COX VISITED WITH PATIENT. POC DISCUSSED. HE STATED THAT PATIENT CAN FOLLOW UP AN OUTPATIENT. NO PROCEDURE SCHEDULED FOR THIS ADMISSION. PATIENT AGREED TO BARIATRIC SX.
[2020-01-22 11:28] VITALS: BP 119/80
[2020-01-22 16:22] VITALS: BP 127/83
[2020-01-22 19:42] VITALS: BP 132/85
[2020-01-22 23:56] VITALS: BP 135/74
[2020-01-23 03:54] VITALS: BP 122/78
[2020-01-23 04:19] LABS: BASOPHILS % (AUTO) 0.4 % (0.0-5.0); EOSINOPHILS % (AUTO) 3.4 % (0.0-8.0); HEMATOCRIT 37.9 % (36-48); LYMPHOCYTES % (AUTO) 26.6 % (21.0-51.0); MEAN CORPUSCULAR HEMOGLOBIN 22.7 pg (27.0-33.0); MEAN CORPUSCULAR HGB CONC 27.2 g/dL (32.0-36.0); MEAN CORPUSCULAR VOLUME 83.7 fL (79-99); MONOCYTES % (AUTO) 10.1 % (3.0-13.0); NEUTROPHILS % (AUTO) 59.1 % (40.0-77.0); PLATELET COUNT (AUTO) 155 K/uL (130-400); RED BLOOD CELL COUNT(AUTO) 4.53 MIL/uL (4.00-5.50); RED CELL DISTRIBUTION WIDTH 19.7 % (11.0-15.5); WHITE BLOOD COUNT (AUTO) 5.6 K/uL (4.8-10.8)
[2020-01-23 04:55] LABS: ALBUMIN 2.5 g/dL (3.5-5.0); BILIRUBIN,TOTAL 0.4 mg/dL (0.2-1.0); CREATININE 1.6 mg/dL (0.5-1.5); TOTAL PROTEIN, SERUM 6.9 g/dL (6.0-8.3)
[2020-01-23] MEDS: INSULIN HUMULIN R 100 UNIT/ML 3ML SQ SCH ×4 (07:28→19:59)
[2020-01-23] MEDS: DULOXETINE HCL 30 MG CAP PO SCH (08:14)
[2020-01-23] MEDS: BACLOFEN 10 MG TABLET PO SCH ×3 (08:15→19:42)
[2020-01-23] MEDS: FUROSEMIDE 10 MG/ML 4ML VIAL IV SCH (08:15)
[2020-01-23] MEDS: HYDROCHLOROTHIAZIDE 25 MG TABLET PO SCH (08:15)
[2020-01-23 08:16] VITALS: BP 130/83
[2020-01-23] MEDS: FLUTICASONE/VILANTEROL 1 EACH AER.POW.BA IH SCH (08:16)
[2020-01-23 11:38] VITALS: BP 147/89
[2020-01-23] MEDS: ACETAZOLAMIDE SODIUM 500 MG VIAL IV SCH ×2 (12:23→19:42)
[2020-01-23] MEDS: ENOXAPARIN SODIUM 120 MG/0.8ML SQ SCH ×2 (12:25→19:50)
--- NOTE | 2020-01-23 12:48 | NUR ---
CM Note: [facility] pending approval CM faxed updated clinicals, covid transfer form and covid result done on 01/14, confirmation received. Pt pending approval at this time. MOT semi-filled pending to be completed once approved, flagged in chart. EMS arranged and faxed for tomorrow in case pt receive auth, primary nurse to call [facility] once pt ready to DC. Primary nurse aware. CM to cont to follow up.
[2020-01-23 16:29] VITALS: BP 142/85
[2020-01-23 19:00] VITALS: BP 120/59
[2020-01-24] VITALS: BP 125/70
[2020-01-24 03:36] LABS: ABG BASE EXCESS 11.7 mmol/L (-2.0-3.0); ABG HCO3 41.6 mmol/L (21.0-28.0); ABG OXYGEN SATURATION 93.1 % (95.0-99.0); ABG PCO2 80 mmHg (32-45)
[2020-01-24 03:50] VITALS: BP 140/83
[2020-01-24 03:52] LABS: BASOPHILS % (AUTO) 0.4 % (0.0-5.0); EOSINOPHILS % (AUTO) 4.3 % (0.0-8.0); HEMATOCRIT 37.3 % (36-48); LYMPHOCYTES % (AUTO) 27.7 % (21.0-51.0); MEAN CORPUSCULAR HGB CONC 27.3 g/dL (32.0-36.0); MEAN CORPUSCULAR VOLUME 84.2 fL (79-99); MONOCYTES % (AUTO) 9.6 % (3.0-13.0); NEUTROPHILS % (AUTO) 57.8 % (40.0-77.0); PLATELET COUNT (AUTO) 139 K/uL (130-400); RED BLOOD CELL COUNT(AUTO) 4.43 MIL/uL (4.00-5.50); RED CELL DISTRIBUTION WIDTH 19.7 % (11.0-15.5); WHITE BLOOD COUNT (AUTO) 4.9 K/uL (4.8-10.8)
[2020-01-24 04:06] LABS: ALBUMIN 2.4 g/dL (3.5-5.0); BILIRUBIN,TOTAL 0.4 mg/dL (0.2-1.0); CREATININE 1.6 mg/dL (0.5-1.5); POTASSIUM 3.8 mmol/L (3.5-5.1); TOTAL PROTEIN, SERUM 6.6 g/dL (6.0-8.3)
[2020-01-24] MEDS: INSULIN HUMULIN R 100 UNIT/ML 3ML SQ SCH ×4 (05:38→21:00)
[2020-01-24 08:29] VITALS: BP 152/85
[2020-01-24] MEDS: ACETAZOLAMIDE SODIUM 500 MG VIAL IV SCH ×2 (10:24→21:17)
[2020-01-24] MEDS: FUROSEMIDE 10 MG/ML 4ML VIAL IV SCH (10:24)
[2020-01-24] MEDS: ENOXAPARIN SODIUM 120 MG/0.8ML SQ SCH ×2 (10:25→21:19)
[2020-01-24] MEDS: HYDROCHLOROTHIAZIDE 25 MG TABLET PO SCH (10:26)
[2020-01-24] MEDS: BACLOFEN 10 MG TABLET PO SCH ×3 (10:26→21:17)
[2020-01-24] MEDS: FLUTICASONE/VILANTEROL 1 EACH AER.POW.BA IH SCH (10:26)
[2020-01-24] MEDS: DULOXETINE HCL 30 MG CAP PO SCH (10:26)
[2020-01-24 11:26] VITALS: BP 137/81
[2020-01-24 16:00] VITALS: BP 120/63
--- NOTE | 2020-01-24 16:03 | NUR ---
CM Note: [facility] still pending approval. CM spoke to Amber lacy/[facility] pt still pending approval at this time. CM to cont to follow up.
[2020-01-24 20:00] VITALS: BP 109/67
[2020-01-25] VITALS: BP 117/74
[2020-01-25 04:00] VITALS: BP 132/80
[2020-01-25 04:08] LABS: CREATININE 1.6 mg/dL (0.5-1.5); MAGNESIUM 1.5 mg/dL (1.80-2.40); POTASSIUM 4.4 mmol/L (3.5-5.1)
[2020-01-25] MEDS: INSULIN HUMULIN R 100 UNIT/ML 3ML SQ SCH ×4 (05:21→20:28)
[2020-01-25] MEDS: MAGNESIUM 2GM PREMIX 50ML 50 ML IV PRN (06:28)
[2020-01-25 08:00] VITALS: BP 130/83
[2020-01-25] MEDS: ACETAZOLAMIDE SODIUM 500 MG VIAL IV SCH ×2 (09:49→19:10)
[2020-01-25] MEDS: FUROSEMIDE 10 MG/ML 4ML VIAL IV SCH (09:49)
[2020-01-25] MEDS: ENOXAPARIN SODIUM 120 MG/0.8ML SQ SCH ×2 (09:50→19:10)
[2020-01-25] MEDS: DULOXETINE HCL 30 MG CAP PO SCH (09:50)
[2020-01-25] MEDS: BACLOFEN 10 MG TABLET PO SCH ×3 (09:50→19:11)
[2020-01-25] MEDS: HYDROCHLOROTHIAZIDE 25 MG TABLET PO SCH (09:50)
[2020-01-25 11:36] VITALS: BP 142/88
[2020-01-25] MEDS: FLUTICASONE/VILANTEROL 1 EACH AER.POW.BA IH SCH (15:39)
[2020-01-25 17:32] VITALS: BP 144/78
[2020-01-25 20:00] VITALS: BP 126/69
[2020-01-26] VITALS (7 sets, daily range): BP systolic 106–131; BP diastolic 54–86
[2020-01-26] MEDS: INSULIN HUMULIN R 100 UNIT/ML 3ML SQ SCH ×4 (05:21→21:00)
[2020-01-26] MEDS: FLUTICASONE/VILANTEROL 1 EACH AER.POW.BA IH SCH (09:00)
[2020-01-26] MEDS: HYDROCHLOROTHIAZIDE 25 MG TABLET PO SCH (10:03)
[2020-01-26] MEDS: AcetaZOLAMIDE 250 MG TAB PO SCH ×2 (10:04→21:15)
[2020-01-26] MEDS: BACLOFEN 10 MG TABLET PO SCH ×3 (10:04→21:15)
[2020-01-26] MEDS: DULOXETINE HCL 30 MG CAP PO SCH (10:04)
[2020-01-26] MEDS: ENOXAPARIN SODIUM 120 MG/0.8ML SQ SCH ×2 (10:05→21:14)
[2020-01-26] MEDS: FUROSEMIDE 10 MG/ML 4ML VIAL IV SCH (10:05)
--- NOTE | 2020-01-26 11:47 | NUR ---
CM Note: [facility] bardales CM spoke to Amber lacy/[facility], pt denied unable to meet pt needs. Informed Dr Huston. As per DC pt to home today, order entered, f/u w/ Thu/. EMS arranged and faxed, primary nurse to call [facility] once pt ready to DC. Confirmed w/pt broken bipap at home fixed already by [facility] last week. Pt safe to DC via EMS. Primary nurse Alex YEAGER and charge nurse Rosemary YEAGER aware. CM to cont to follow up.
[2020-01-26] MEDS ORDERED: ACET250T28 PO (12:50)
[2020-01-27 03:44] VITALS: BP 124/74
--- NOTE | 2020-01-27 04:53 | NUR ---
BUTLER CATHETER REMOVED, PT INSTRUCTED ON URINARY RETENTION. VOICED UNDERSTANDING. PT IS DTV BY 1300.
[2020-01-27] MEDS: INSULIN HUMULIN R 100 UNIT/ML 3ML SQ SCH ×4 (05:15→21:00)
[2020-01-27 06:34] LABS: HEMATOCRIT 37.9 % (36-48); MEAN CORPUSCULAR HEMOGLOBIN 23.3 pg (27.0-33.0); MEAN CORPUSCULAR HGB CONC 28.2 g/dL (32.0-36.0); MEAN CORPUSCULAR VOLUME 82.6 fL (79-99); RED BLOOD CELL COUNT(AUTO) 4.59 MIL/uL (4.00-5.50); RED CELL DISTRIBUTION WIDTH 19.5 % (11.0-15.5); WHITE BLOOD COUNT (AUTO) 5.2 K/uL (4.8-10.8)
[2020-01-27 06:42] LABS: CREATININE 1.6 mg/dL (0.5-1.5); MAGNESIUM 1.6 mg/dL (1.80-2.40); POTASSIUM 3.4 mmol/L (3.5-5.1)
[2020-01-27 07:30] VITALS: BP 121/75
[2020-01-27] MEDS: MAGNESIUM 2GM PREMIX 50ML 50 ML IV PRN (10:11)
[2020-01-27] MEDS: BACLOFEN 10 MG TABLET PO SCH ×3 (10:12→22:10)
[2020-01-27] MEDS: AcetaZOLAMIDE 250 MG TAB PO SCH ×2 (10:12→22:10)
[2020-01-27] MEDS: DULOXETINE HCL 30 MG CAP PO SCH (10:12)
[2020-01-27] MEDS: HYDROCHLOROTHIAZIDE 25 MG TABLET PO SCH (10:12)
[2020-01-27] MEDS: FUROSEMIDE 10 MG/ML 4ML VIAL IV SCH (10:13)
[2020-01-27] MEDS: FLUTICASONE/VILANTEROL 1 EACH AER.POW.BA IH SCH (10:13)
[2020-01-27] MEDS: ENOXAPARIN SODIUM 120 MG/0.8ML SQ SCH (10:13)
--- NOTE | 2020-01-27 10:30 | NUR ---
CM Note: [facility] pending approval CM met with pt for rehab request. Pt agreeable, MONY signed for [facility]. Called [facility] spoke to Bernie unable to accommodate pt's weight. Called [facility] spoke to Melly unable to accommodate pt's weight. Called [facility] spoke to Janiya, as per rep has bariatric bed available for pt. Faxed order, clinicals, PT, PAS[facility], Covid transfer form to [facility], confirmation received. Janiya aware pending covid test ordered for today, will send result once available. Aware dcp once pt has approval. EMS filled out pending to be faxed w/current date, primary nurse to call [facility] once pt ready to DC. Pt pending approval. Primary nurse aware. CM to cont to follow up.
[2020-01-27 11:00] VITALS: BP 119/77
[2020-01-27 16:00] VITALS: BP 126/80
[2020-01-27] MEDS ORDERED: POTASSIUM CHLORIDE 20 MEQ ERTAB PO PRN (16:00)
[2020-01-27] MEDS ORDERED: LIDOCAINE HCL-MPF 1% 2ML VIAL IV PRN ×2 (16:00)
[2020-01-27] MEDS ORDERED: POTASSIUM CHLORIDE 20MEQ/100ML 100 ML IV PRN ×2 (16:00)
[2020-01-27] MEDS: HEPARIN SODIUM 5000UNIT/ML 1ML VIAL SQ SCH (16:00)
--- NOTE | 2020-01-27 17:20 | NUR ---
held first dose of heparin because pt received a large dose of lovenox earlier today.
[2020-01-27] MEDS: POTASSIUM CHLORIDE 10% ELIXIR 20 MEQ/15 ML UDCUP PO PRN ×2 (17:25→18:38)
[2020-01-27] MEDS: THEOPHYLLINE ANHYDROUS 100 MG CAP.ER.24H PO SCH (17:25)
--- NOTE | 2020-01-27 17:30 | NUR ---
pcr swab collected and sent to lab
[2020-01-27 20:00] VITALS: BP 130/82
--- NOTE | 2020-01-27 20:00 | NUR ---
PM Assessment Received pt awake lying on special bed left lateral side, routine assessment done, plan of care discuss, aware that she remain pending SNF acceptance at this time, verified last BM stated since 01/24 & stated she does usually goes daily. I made her aware due to being bedbound could be a reason for it, offered prune juice declined, inform her that I will notify incoming shift to obtain LOC to help with the issue of constipation, agreed. Pt also claimed at that at home she does ambulates without assistance only this time that she felt so weak, physical therapy on board on this case.
[2020-01-28] VITALS (7 sets, daily range): BP systolic 26–175; BP diastolic 58–81
[2020-01-28] MEDS: HEPARIN SODIUM 5000UNIT/ML 1ML VIAL SQ SCH ×4 (00:26→23:24)
[2020-01-28 06:43] LABS: BASOPHILS % (AUTO) 0.7 % (0.0-5.0); EOSINOPHILS % (AUTO) 3.3 % (0.0-8.0); HEMATOCRIT 37.7 % (36-48); LYMPHOCYTES % (AUTO) 27.1 % (21.0-51.0); MEAN CORPUSCULAR HEMOGLOBIN 23.5 pg (27.0-33.0); MEAN CORPUSCULAR HGB CONC 28.1 g/dL (32.0-36.0); MEAN CORPUSCULAR VOLUME 83.6 fL (79-99); MONOCYTES % (AUTO) 13.5 % (3.0-13.0); NEUTROPHILS % (AUTO) 55.1 % (40.0-77.0); PLATELET COUNT (AUTO) 156 K/uL (130-400); RED BLOOD CELL COUNT(AUTO) 4.51 MIL/uL (4.00-5.50); RED CELL DISTRIBUTION WIDTH 19.3 % (11.0-15.5); WHITE BLOOD COUNT (AUTO) 5.7 K/uL (4.8-10.8)
[2020-01-28 07:17] LABS: ALBUMIN 2.7 g/dL (3.5-5.0); BILIRUBIN,TOTAL 0.3 mg/dL (0.2-1.0); CREATININE 1.7 mg/dL (0.5-1.5); MAGNESIUM 1.9 mg/dL (1.80-2.40); PHOSPHORUS 4.7 mg/dL (2.5-4.9); POTASSIUM 3.4 mmol/L (3.5-5.1); THYROID STIMULATING HORMONE 2.83 uIU/mL (0.36-3.74); TOTAL PROTEIN, SERUM 7.3 g/dL (6.0-8.3)
[2020-01-28] MEDS: INSULIN HUMULIN R 100 UNIT/ML 3ML SQ SCH ×4 (07:19→20:55)
[2020-01-28] MEDS: FUROSEMIDE 10 MG/ML 4ML VIAL IV SCH (08:53)
[2020-01-28] MEDS: HYDROCHLOROTHIAZIDE 25 MG TABLET PO SCH (08:53)
[2020-01-28] MEDS: DULOXETINE HCL 30 MG CAP PO SCH (08:53)
[2020-01-28] MEDS: BACLOFEN 10 MG TABLET PO SCH ×3 (08:53→20:56)
[2020-01-28] MEDS: AcetaZOLAMIDE 250 MG TAB PO SCH (08:53)
[2020-01-28] MEDS: FLUTICASONE/VILANTEROL 1 EACH AER.POW.BA IH SCH (08:58)
[2020-01-28] MEDS: POTASSIUM CHLORIDE 10% ELIXIR 20 MEQ/15 ML UDCUP PO PRN ×2 (08:58→13:29)
--- NOTE | 2020-01-28 14:32 | NUR ---
CM NOTE/PENDING SNF AUTH PER [facility], PENDING AUTHORIZATION. ALSO PENDING COVID TEST RESULTS. CM TO FOLLOW UP
--- NOTE | 2020-01-28 16:00 | NUR ---
ASSUMED CARE OF PT.
[2020-01-28] MEDS: THEOPHYLLINE ANHYDROUS 100 MG CAP.ER.24H PO SCH (16:46)
[2020-01-29 03:00] VITALS: BP 125/71
[2020-01-29 03:35] LABS: ABG HCO3 32.9 mmol/L (21.0-28.0); ABG OXYGEN SATURATION 94.9 % (95.0-99.0); ABG PCO2 69 mmHg (32-45)
[2020-01-29 05:34] LABS: HEMATOCRIT 37.2 % (36-48); MEAN CORPUSCULAR HEMOGLOBIN 23.2 pg (27.0-33.0); MEAN CORPUSCULAR HGB CONC 28.2 g/dL (32.0-36.0); MEAN CORPUSCULAR VOLUME 82.1 fL (79-99); RED BLOOD CELL COUNT(AUTO) 4.53 MIL/uL (4.00-5.50); RED CELL DISTRIBUTION WIDTH 19.1 % (11.0-15.5); WHITE BLOOD COUNT (AUTO) 5.6 K/uL (4.8-10.8)
[2020-01-29 05:48] LABS: CREATININE 1.7 mg/dL (0.5-1.5); MAGNESIUM 1.8 mg/dL (1.80-2.40); PHOSPHORUS 4.6 mg/dL (2.5-4.9); POTASSIUM 3.3 mmol/L (3.5-5.1)
[2020-01-29] MEDS: INSULIN HUMULIN R 100 UNIT/ML 3ML SQ SCH ×4 (06:26→20:56)
[2020-01-29 08:38] VITALS: BP 140/84
[2020-01-29] MEDS: SENNOSIDES 8.6 MG TABLET PO SCH (09:28)
[2020-01-29] MEDS: DULOXETINE HCL 30 MG CAP PO SCH (09:28)
[2020-01-29] MEDS: BACLOFEN 10 MG TABLET PO SCH ×3 (09:28→20:59)
[2020-01-29] MEDS: HYDROCHLOROTHIAZIDE 25 MG TABLET PO SCH (09:28)
[2020-01-29] MEDS: FUROSEMIDE 10 MG/ML 4ML VIAL IV SCH (09:29)
[2020-01-29] MEDS: HEPARIN SODIUM 5000UNIT/ML 1ML VIAL SQ SCH ×2 (09:37→18:03)
[2020-01-29] MEDS: FLUTICASONE/VILANTEROL 1 EACH AER.POW.BA IH SCH (09:38)
[2020-01-29] MEDS: MAGNESIUM 2GM PREMIX 50ML 50 ML IV PRN (09:38)
[2020-01-29 12:28] VITALS: BP 136/76
[2020-01-29 16:45] VITALS: BP 142/76
[2020-01-29] MEDS: THEOPHYLLINE ANHYDROUS 100 MG CAP.ER.24H PO SCH (17:56)
[2020-01-29] MEDS: POTASSIUM CHLORIDE 10% ELIXIR 20 MEQ/15 ML UDCUP PO PRN (17:57)
[2020-01-29 20:00] VITALS: BP 146/73
[2020-01-29 23:42] VITALS: BP 113/69
[2020-01-30] MEDS: HEPARIN SODIUM 5000UNIT/ML 1ML VIAL SQ SCH ×3 (00:26→16:47)
[2020-01-30 03:45] VITALS: BP 121/77
[2020-01-30 04:03] LABS: ABG BASE EXCESS 5.1 mmol/L (-2.0-3.0); ABG HCO3 34.1 mmol/L (21.0-28.0); ABG PCO2 71 mmHg (32-45)
[2020-01-30 04:09] LABS: HEMATOCRIT 39.7 % (36-48); MEAN CORPUSCULAR VOLUME 82.2 fL (79-99); RED BLOOD CELL COUNT(AUTO) 4.83 MIL/uL (4.00-5.50); RED CELL DISTRIBUTION WIDTH 18.8 % (11.0-15.5); WHITE BLOOD COUNT (AUTO) 5.7 K/uL (4.8-10.8)
[2020-01-30 04:21] LABS: CREATININE 1.7 mg/dL (0.5-1.5); MAGNESIUM 2.1 mg/dL (1.80-2.40); POTASSIUM 3.5 mmol/L (3.5-5.1)
--- NOTE | 2020-01-30 04:57 | NUR ---
STATUS Pt slept well on bipap,april well.Denies sob.
[2020-01-30] MEDS: INSULIN HUMULIN R 100 UNIT/ML 3ML SQ SCH ×3 (05:31→16:30)
[2020-01-30 07:54] VITALS: BP 127/75
[2020-01-30] MEDS: SENNOSIDES 8.6 MG TABLET PO SCH (09:00)
[2020-01-30] MEDS ORDERED: FUROSEMIDE 40 MG TABLET PO SCH (09:00)
[2020-01-30] MEDS: DULOXETINE HCL 30 MG CAP PO SCH (09:00)
[2020-01-30] MEDS ORDERED: POTASSIUM CHLORIDE 20 MEQ ERTAB PO SCH (09:00)
[2020-01-30] MEDS: BACLOFEN 10 MG TABLET PO SCH ×2 (09:00→13:27)
[2020-01-30] MEDS: HYDROCHLOROTHIAZIDE 25 MG TABLET PO SCH (09:00)
[2020-01-30] MEDS: FLUTICASONE/VILANTEROL 1 EACH AER.POW.BA IH SCH (09:02)
--- NOTE | 2020-01-30 10:25 | NUR ---
CM Note: [facility] approval CM spoke to Janiya lacy/[facility] pt has approved. Received covid test result this morning. EMS arranged and faxed, primary nurse to call [facility] once pt ready to DC. Charge nurse made aware. CM to cont to follow up.
[2020-01-30] MEDS ORDERED: THEO100C PO (10:47)
[2020-01-30] MEDS ORDERED: FURO40TA7 PO (10:47)
[2020-01-30 11:14] VITALS: BP 138/87
[2020-01-30] MEDS ORDERED: BISACODYL 10 MG SUPP.RECT RC PRN (13:15)
[2020-01-30] MEDS ORDERED: LACTULOSE 20 GM/30 ML UDCUP PO PRN (13:15)
[2020-01-30 16:00] VITALS: BP 129/77
[2020-01-30] MEDS: THEOPHYLLINE ANHYDROUS 100 MG CAP.ER.24H PO SCH (16:52)
--- NOTE | 2020-01-30 18:20 | NUR ---
DISCHARGE INSTRUCTIONS REVIEW DISCHARGE INSTRUCTIONS WITH PATIENT, ALL QUESTIONS ANSWERED.
--- NOTE | 2020-01-30 18:25 | NUR ---
[facility] REPORT GIVEN TO TOY LAGUNA OF [facility] [phone]. MEDICATION RECONCILIATION FAXED.
--- NOTE | 2020-01-30 18:30 | NUR ---
[facility] CALLED [phone] AND INFORMED PATIENT IN ROOM 329 AND READY TO BE TRANSFERRED TO [facility] IN [place]. INFORMED THAT PATIENT REQUIRES BARIATRIC EQUIPMENT AND OXYGEN FOR TRANSPORT.
== END 2020-01-30 20:13 | DRG 189 ==
LOC: EDH 09:11 → EDHIP 11:30 → 3AH 18:34
PROVIDERS: ADMIT Family Medicine; ATTEND Family Medicine
PROC: 5A09357 Assistance with Respiratory Ventilation, Less than 24 Consecutive Hours, Continuous Positive Airway Pressure (ICD-10-PCS; principal; 2020-01-12)
PROC: 5A09357 Assistance with Respiratory Ventilation, Less than 24 Consecutive Hours, Continuous Positive Airway Pressure (ICD-10-PCS; 2020-01-13)
PROC: 5A09357 Assistance with Respiratory Ventilation, Less than 24 Consecutive Hours, Continuous Positive Airway Pressure (ICD-10-PCS; 2020-01-14)
PROC: 5A09357 Assistance with Respiratory Ventilation, Less than 24 Consecutive Hours, Continuous Positive Airway Pressure (ICD-10-PCS; 2020-01-14)
PROC: 5A09457 Assistance with Respiratory Ventilation, 24-96 Consecutive Hours, Continuous Positive Airway Pressure (ICD-10-PCS; 2020-01-15)
PROC: 5A09357 Assistance with Respiratory Ventilation, Less than 24 Consecutive Hours, Continuous Positive Airway Pressure (ICD-10-PCS; 2020-01-18)
PROC: 5A09357 Assistance with Respiratory Ventilation, Less than 24 Consecutive Hours, Continuous Positive Airway Pressure (ICD-10-PCS; 2020-01-19)
PROC: 5A09457 Assistance with Respiratory Ventilation, 24-96 Consecutive Hours, Continuous Positive Airway Pressure (ICD-10-PCS; 2020-01-19)
PROC: 5A09357 Assistance with Respiratory Ventilation, Less than 24 Consecutive Hours, Continuous Positive Airway Pressure (ICD-10-PCS; 2020-01-21)
PROC: 5A09457 Assistance with Respiratory Ventilation, 24-96 Consecutive Hours, Continuous Positive Airway Pressure (ICD-10-PCS; 2020-01-21)
DX: J96.21 Acute and chronic respiratory failure with hypoxia (principal); N39.0 Urinary tract infection, site not specified; E87.2 Acidosis; Z68.45 Body mass index [BMI] 70 or greater, adult; J44.1 Chronic obstructive pulmonary disease with (acute) exacerbation; E66.2 Morbid (severe) obesity with alveolar hypoventilation; J96.22 Acute and chronic respiratory failure with hypercapnia; I11.0 Hypertensive heart disease with heart failure; N28.9 Disorder of kidney and ureter, unspecified; E78.5 Hyperlipidemia, unspecified; E11.9 Type 2 diabetes mellitus without complications; Z20.828 Contact with and (suspected) exposure to other viral communicable diseases; I27.81 Cor pulmonale (chronic); E78.00 Pure hypercholesterolemia, unspecified; I50.9 Heart failure, unspecified; K59.00 Constipation, unspecified; W19.XXXA Unspecified fall, initial encounter; Y93.89 Activity, other specified; Y92.098 Other place in other non-institutional residence as the place of occurrence of the external cause; Y99.8 Other external cause status; Z79.899 Other long term (current) drug therapy; Z91.19 Patient's noncompliance with other medical treatment and regimen
CPT/HCPCS: 36415; 36600; 70450; 71045; 72131; 80048; 80053; 81001; 82140; 82550; 82803; 82948; 83036; 83605; 83690; 83735; 83874; 83880; 84100; 84145; 84443; 84484; 85025; 85027; 85378; 85610; 85730; 87040; 87088; 87426; 93005; 93306; 93970; 94660; 97039; C9113; G0378; J0696; J1120; J1644; J1650; J1940; J2405; J3475; U0003